=== PATIENT | female | born 1965 | race Caucasian/White ===

== ENCOUNTER 2017-02-08 22:12 | Emergency (ER) | payer MEDICAID ==
[~2017-02-08] VITALS: Ht 167.6 cm; Wt 74.2 kg
[~2017-02-08 22:12] MED LIST: HYDR-3307 PO; OMEP20TA62 PO; POLY17PO5 PO
[2017-02-08] MEDS ORDERED: HYDROmorphone 1 MG/ML, 1ML ONE (22:50)
[2017-02-08] MEDS ORDERED: ONDANSETRON 2MG/ML, 2ML ONE (22:51)
[2017-02-08] MEDS ORDERED: SODIUM CHLORIDE FLUSH 10ML SYR IVF ONE (23:00)
[2017-02-08] MEDS ORDERED: HYDROmorphone 1 MG/ML, 1ML IVPush PRN (23:00)
[2017-02-08] MEDS ORDERED: ONDANSETRON 2MG/ML, 2ML IVPush ONE (23:00)
[2017-02-08] MEDS ORDERED: SODIUM CHLORIDE 0.9% 1,000ML IVBOLUS ONE (23:00)
[2017-02-08] MEDS ORDERED: METHYLNALTREXONE 12 MG/0.6 ML SQ ONE (23:30)
[2017-02-09 00:01] VITALS: BP 95/60
== END 2017-02-09 00:04 | disposition home or self-care (01) ==
LOC: ED 22:44
DX: K59.00 Constipation, unspecified (principal); F11.10 Opioid abuse, uncomplicated
CPT/HCPCS: 74022; 96361; 96372; 96374; 96375; 99284; J1170; J2405; J7030

== ENCOUNTER 2017-04-02 16:57 | Emergency (ER) | payer MEDICAID ==
[~2017-04-02] VITALS: Ht 170.2 cm; Wt 77.1 kg
[2017-04-02] MEDS ORDERED: DIPH,PERTUSS(ACELL),TET VAC/PF 0.5 ML IM-VACC ONE ×2 (17:30→18:50)
[2017-04-02 18:56] LABS: BASOPHILS # (AUTO) 0.04 x10^3/uL (0-0.1); BASOPHILS % (AUTO) 1 % (0-1); EOSINOPHILS # (AUTO) 0.09 x10^3/uL (0-0.4); EOSINOPHILS % (AUTO) 2 % (1-7); LYMPHOCYTES # (AUTO) 0.77 x10^3/uL (1-3.4); LYMPHOCYTES % (AUTO) 15 % (22-44); MD NO; MEAN CORPUSCULAR HEMOGLOBIN 31.4 pg (27.0-34.8); MEAN CORPUSCULAR HGB CONC 33.4 g/dL (32.4-35.8); MEAN PLATELET VOLUME 7.2 fL (7.4-10.4); MONOCYTES # (AUTO) 0.84 x10^3/uL (0.2-0.8); MONOCYTES % (AUTO) 16 % (2-9); NEUTROPHILS # (AUTO) 3.46 x10^3/uL (1.8-6.8); NEUTROPHILS % (AUTO) 66 % (42-75); PLATELET COUNT 370 x10^3/uL (130-400); RED BLOOD COUNT 4.13 x10^6/uL (3.82-5.3); RED CELL DISTRIBUTION WIDTH 14.2 % (9.6-15.2)
[2017-04-02 19:07] LABS: ALANINE AMINOTRANSFERASE 19 U/L (12-78); ALBUMIN 3.2 g/dL (3.4-5.0); ANION GAP 7 mmol/L (5-15); CHLORIDE 105 mmol/L (98-107); CREATININE 0.65 mg/dL (0.55-1.02)
[2017-04-02 19:10] LABS: ALKALINE PHOSPHATASE 63 U/L (45-117); BILIRUBIN,TOTAL 0.2 mg/dL (0.2-1.0); TOTAL PROTEIN 6.3 g/dL (6.4-8.2)
[2017-04-02 20:57] LABS: MICROSCOPIC AUTO
[2017-04-02 20:59] LABS: CULTURE INDICATED? YES
[2017-04-02 21:46] VITALS: BP 123/79
== END 2017-04-02 21:50 | disposition home or self-care (01) ==
LOC: ED 20:03
DX: S16.1XXA Strain of muscle, fascia and tendon at neck level, initial encounter (principal); S00.03XA Contusion of scalp, initial encounter; S80.01XA Contusion of right knee, initial encounter; G89.29 Other chronic pain; M54.9 Dorsalgia, unspecified; Y04.0XXA Assault by unarmed brawl or fight, initial encounter; Y04.1XXA Assault by human bite, initial encounter; Y93.89 Activity, other specified; Y92.89 Other specified places as the place of occurrence of the external cause; Y99.8 Other external cause status
CPT/HCPCS: 36415; 70450; 70486; 72110; 72125; 80053; 81001; 83690; 85025; 87086; 90471; 90715

== ENCOUNTER 2017-06-08 19:48 | Emergency (ER) | payer MEDICAID ==
[~2017-06-08] VITALS: Ht 170.2 cm; Wt 72.3 kg
[2017-06-08 19:49] VITALS: BP 101/68
[2017-06-08] MEDS ORDERED: DIAZEPAM 5 MG TABLET PO ONE (20:30)
[2017-06-08] MEDS ORDERED: KETOROLAC 30 MG/1 ML IM ONE (20:30)
[2017-06-08] MEDS ORDERED: KETOROLAC 30 MG/1 ML ONE (21:11)
[2017-06-08] MEDS ORDERED: DIAZEPAM 5 MG TABLET ONE (21:11)
== END 2017-06-08 21:31 | disposition home or self-care (01) ==
LOC: ED 21:25
DX: M62.838 Other muscle spasm (principal)
CPT/HCPCS: 73030; 96372; 99284; J1885

== ENCOUNTER 2017-08-31 23:19 | Emergency (ER) | payer SELFPAY ==
[~2017-08-31] VITALS: Ht 170.2 cm; Wt 75.7 kg
[2017-08-31 23:55] LABS: BASOPHILS # (AUTO) 0.09 x10^3/uL (0-0.1); BASOPHILS % (AUTO) 1 % (0-1); EOSINOPHILS # (AUTO) 0.12 x10^3/uL (0-0.4); EOSINOPHILS % (AUTO) 1 % (1-7); LYMPHOCYTES # (AUTO) 1.48 x10^3/uL (1-3.4); LYMPHOCYTES % (AUTO) 15 % (22-44); MD NO; MEAN CORPUSCULAR HEMOGLOBIN 31.3 pg (27.0-34.8); MEAN CORPUSCULAR HGB CONC 33.5 g/dL (32.4-35.8); MEAN CORPUSCULAR VOLUME 93.3 fL (80-100); MEAN PLATELET VOLUME 7.1 fL (7.4-10.4); MONOCYTES # (AUTO) 0.87 x10^3/uL (0.2-0.8); MONOCYTES % (AUTO) 9 % (2-9); NEUTROPHILS % (AUTO) 75 % (42-75); PLATELET COUNT 424 x10^3/uL (130-400); RED BLOOD COUNT 4.16 x10^6/uL (3.82-5.3); RED CELL DISTRIBUTION WIDTH 14.4 % (9.6-15.2)
[2017-09-01 00:03] LABS: ANION GAP 4 mmol/L (5-15); CALCIUM 8.2 mg/dL (8.5-10.1); CHLORIDE 107 mmol/L (98-107); CREATININE 0.66 mg/dL (0.55-1.02)
[2017-09-01 01:24] VITALS: BP 139/84
== END 2017-09-01 01:24 | disposition home or self-care (01) ==
LOC: ED 23:59
DX: M19.90 Unspecified osteoarthritis, unspecified site (principal); F17.210 Nicotine dependence, cigarettes, uncomplicated
CPT/HCPCS: 36415; 80048; 82040; 84550; 85025; 99285

== ENCOUNTER 2018-01-26 13:46 | Emergency (ER) | payer MEDICAID ==
[~2018-01-26] VITALS: Ht 167.6 cm; Wt 79.0 kg
[2018-01-26 13:49] VITALS: BP 126/75
[2018-01-26] MEDS ORDERED: KETOROLAC 30 MG/1 ML IM ONE (14:00)
[2018-01-26] MEDS ORDERED: KETOROLAC 30 MG/1 ML ONE (14:04)
[2018-01-26 14:19] LABS: BASOPHILS # (AUTO) 0.03 x10^3/uL (0-0.1); BASOPHILS % (AUTO) 0 % (0-1); EOSINOPHILS # (AUTO) 0.11 x10^3/uL (0-0.4); EOSINOPHILS % (AUTO) 1 % (1-7); HCT (SEDRATE) 39.7 % (34.6-47.8); LYMPHOCYTES # (AUTO) 1.49 x10^3/uL (1-3.4); LYMPHOCYTES % (AUTO) 15 % (22-44); MD NO; MEAN CORPUSCULAR HGB CONC 33.4 g/dL (32.4-35.8); MEAN CORPUSCULAR VOLUME 95.9 fL (80-100); MEAN PLATELET VOLUME 7.4 fL (7.4-10.4); MONOCYTES # (AUTO) 0.62 x10^3/uL (0.2-0.8); MONOCYTES % (AUTO) 6 % (2-9); NEUTROPHILS % (AUTO) 78 % (42-75); PLATELET COUNT 390 x10^3/uL (130-400); RED BLOOD COUNT 4.14 x10^6/uL (3.82-5.3); RED CELL DISTRIBUTION WIDTH 14.4 % (9.6-15.2)
== END 2018-01-26 15:42 | disposition home or self-care (01) ==
LOC: ED 15:34
DX: S96.911A Strain of unspecified muscle and tendon at ankle and foot level, right foot, initial encounter (principal); M72.2 Plantar fascial fibromatosis; X58.XXXA Exposure to other specified factors, initial encounter; Y93.89 Activity, other specified; Y92.89 Other specified places as the place of occurrence of the external cause; Y99.8 Other external cause status
CPT/HCPCS: 36415; 73630; 84550; 85025; 85651; 96372; 99285; J1885

== ENCOUNTER 2018-07-11 09:39 | Emergency (ER) | payer MEDICAID ==
[~2018-07-11] VITALS: Ht 167.6 cm; Wt 78.9 kg
[2018-07-11 09:54] VITALS: BP 130/82
--- NOTE | 2018-07-11 10:14 | NUR ---
PT REFUSED TORADOL INJECTION. PA AWARE
[2018-07-11] MEDS ORDERED: KETOROLAC 30 MG/1 ML IM ONE (10:30)
== END 2018-07-11 11:02 | disposition home or self-care (01) ==
LOC: ED 10:24
DX: M72.2 Plantar fascial fibromatosis (principal); F17.200 Nicotine dependence, unspecified, uncomplicated
CPT/HCPCS: 99283

== ENCOUNTER → 2019-01-14 | Outpatient (CLI) | payer MEDICAID ==
[~2019-01-14] MED LIST changes: +DOCU-131 PO; +GABA-826 PO; -HYDR-3307 PO; +HYDR-36 PO; +TIZA4CAP PO; +TRAZ-137 PO
== END | disposition home or self-care (01) ==
LOC: RAD 14:23
PROVIDERS: ATTEND Neurological Surgery
DX: Z09 Encounter for follow-up examination after completed treatment for conditions other than malignant neoplasm (principal); R60.0 Localized edema; Z98.890 Other specified postprocedural states
CPT/HCPCS: 72040

== ENCOUNTER → 2019-01-19 | Outpatient (CLI) | payer MEDICAID ==
[2019-01-19 13:58] LABS: BASOPHILS # (AUTO) 0.08 x10^3/uL (0-0.1); BASOPHILS % (AUTO) 1 % (0-1); EOSINOPHILS # (AUTO) 0.09 x10^3/uL (0-0.4); EOSINOPHILS % (AUTO) 1 % (1-7); LYMPHOCYTES # (AUTO) 2.04 x10^3/uL (1-3.4); LYMPHOCYTES % (AUTO) 28 % (22-44); MD NO; MEAN CORPUSCULAR HEMOGLOBIN 30.8 pg (27.0-34.8); MEAN CORPUSCULAR HGB CONC 32.8 g/dL (32.4-35.8); MEAN CORPUSCULAR VOLUME 93.7 fL (80-100); MEAN PLATELET VOLUME 7.2 fL (7.4-10.4); MONOCYTES # (AUTO) 0.68 x10^3/uL (0.2-0.8); MONOCYTES % (AUTO) 9 % (2-9); NEUTROPHILS # (AUTO) 4.48 x10^3/uL (1.8-6.8); NEUTROPHILS % (AUTO) 61 % (42-75); PLATELET COUNT 369 x10^3/uL (130-400); RED BLOOD COUNT 4.44 x10^6/uL (3.82-5.3); RED CELL DISTRIBUTION WIDTH 13.9 % (9.6-15.2)
[2019-01-19 14:09] LABS: ANION GAP 2 mmol/L (5-15); CALCIUM 8.5 mg/dL (8.5-10.1); CHLORIDE 104 mmol/L (98-107)
[2019-01-19 14:10] LABS: CREATININE 0.59 mg/dL (0.55-1.02)
== END | disposition home or self-care (01) ==
LOC: STAR 12:42
PROVIDERS: ATTEND Orthopaedic Surgery
DX: Z01.818 Encounter for other preprocedural examination (principal); M17.11 Unilateral primary osteoarthritis, right knee
CPT/HCPCS: 36415; 80048; 85025; 87081

== ENCOUNTER 2019-01-27 06:51 | Observation (INO) | payer MEDICAID ==
[~2019-01-27] VITALS: Ht 170.2 cm; Wt 86.7 kg
[~2019-01-27 06:51] MED LIST changes: +DEXAMETHASONE 4 MG/ML, 1ML IVPush ONE
[2019-01-27] MEDS ORDERED: ROPIvacaine/PF 0.2%, 20 ML ONE (06:53)
[2019-01-27] MEDS ORDERED: TRANEXAMIC ACID 100 MG/ML, 10ML ONE (06:53)
[2019-01-27] MEDS ORDERED: VANCOMYCIN 1,000 MG ONE (06:53)
[2019-01-27] MEDS ORDERED: KETOROLAC 60 MG/2 ML ONE (06:53)
[2019-01-27] MEDS ORDERED: EPINEPHRINE 1 MG/ML, 1ML ONE (06:54)
[2019-01-27] MEDS ORDERED: ACETAMINOPHEN 500 MG TABLET PO ONE (07:30)
[2019-01-27] MEDS ORDERED: PREGABALIN 150 MG CAPSULE PO ONE (07:30)
[2019-01-27] MEDS ORDERED: SCOPOLAMINE PATCH, 1.5MG PATCH.TD72 TD ONE (07:30)
[2019-01-27 07:38] VITALS: BP 116/71
[2019-01-27] MEDS ORDERED: MIDAZOLAM 1 MG/ML, 2ML ONE (07:46)
[2019-01-27] MEDS ORDERED: FENTANYL PF 250 MCG/5ML ONE (07:46)
[2019-01-27] MEDS ORDERED: LACTATED RINGERS 1,000 ML IV SCH (07:54)
[2019-01-27 08:00] LABS: HCG UR SG 1.035 (1.003-1.030)
[2019-01-27] MEDS ORDERED: FLU VACC QS2019-20 36MOS UP/PF 0.5 ML IM-VACC ONE (08:00)
[2019-01-27] MEDS ORDERED: DEXAMETHASONE 4 MG/ML, 1ML ONE (09:15)
[2019-01-27] MEDS ORDERED: CEFAZOLIN 1,000 MG ONE (09:15)
[2019-01-27] MEDS ORDERED: ROCURONIUM 10 MG/ML,10ML ONE (09:15)
[2019-01-27] MEDS ORDERED: PROPOFOL 10 MG/ML, 20ML ONE (09:15)
[2019-01-27] MEDS ORDERED: ONDANSETRON 2MG/ML, 2ML ONE (09:15)
[2019-01-27] MEDS ORDERED: SUCCINYLCHOLINE 20 MG/ML, 10ML ONE (09:15)
[2019-01-27] MEDS ORDERED: ALBUTEROL SULFATE 2.5 MG/3 ML NPPB PRN (10:00)
[2019-01-27] MEDS ORDERED: LABETALOL 5MG/ML, 20ML IV PRN (10:00)
[2019-01-27] MEDS ORDERED: PROMETHAZINE 25 MG/ML, 1ML IV PRN (10:00)
[2019-01-27] MEDS ORDERED: MEPERIDINE/PF 25MG/0.5ML IVPush PRN (10:00)
[2019-01-27] MEDS ORDERED: hydrALAzine 20 MG/ML, 1ML IV PRN (10:00)
[2019-01-27] MEDS ORDERED: OXYcodone 5 MG/5 ML ORAL.SOL UDC PO PRN (10:00)
[2019-01-27] MEDS ORDERED: KETOROLAC 30 MG/1 ML IV PRN (10:00)
[2019-01-27] MEDS ORDERED: METOCLOPRAMIDE 5 MG/ML, 2ML IV PRN (10:00)
[2019-01-27] MEDS ORDERED: ONDANSETRON 2MG/ML, 2ML IVPush PRN (10:00)
[2019-01-27] MEDS ORDERED: OXYcodone 5 MG/5 ML ORAL.SOL UDC ONE (10:45)
[2019-01-27] MEDS ORDERED: FENTANYL PF 100 MCG/2ML ONE (10:45)
[2019-01-27] MEDS: FENTANYL PF 100 MCG/2ML IV PRN ×2 (10:46→11:00)
[2019-01-27] MEDS ORDERED: LORazepam 2 MG/ML, 1ML ONE (10:48)
[2019-01-27] MEDS ORDERED: ALUMINUM/MAG/SIMETHICONE 30 ML UDC PO PRN (11:00)
[2019-01-27] MEDS ORDERED: PROMETHAZINE 12.5 MG SUPP PR PRN (11:00)
[2019-01-27] MEDS ORDERED: HYDROmorphone 2 MG/ML, 1ML IVPush PRN (11:00)
[2019-01-27] MEDS ORDERED: LORazepam 2 MG/ML, 1ML IVPush PRN (11:00)
[2019-01-27] MEDS ORDERED: SENNA/DOCUSATE TABLET PO PRN (11:00)
[2019-01-27] MEDS ORDERED: ONDANSETRON 2MG/ML, 2ML IV PRN (11:00)
[2019-01-27] MEDS ORDERED: SCOPOLAMINE PATCH, 1.5MG PATCH.TD72 TD SCH (11:00)
[2019-01-27] MEDS ORDERED: ZOLPIDEM 5MG TABLET PO PRN (11:00)
[2019-01-27] MEDS ORDERED: MAGNESIUM HYDROXIDE 8%, 30ML UDC PO PRN (11:00)
[2019-01-27] MEDS ORDERED: PROMETHAZINE 25 MG/ML, 1ML IM PRN (11:00)
[2019-01-27] MEDS ORDERED: DIPHENHYDRAMINE 50 MG CAPSULE PO PRN (11:00)
[2019-01-27] MEDS ORDERED: PSYLLIUM PACKET PO PRN (11:00)
[2019-01-27] MEDS ORDERED: TIZANIDINE 4MG TABLET PO PRN (11:00)
[2019-01-27] MEDS ORDERED: BISACODYL 10 MG SUPP PR PRN (11:00)
[2019-01-27] MEDS ORDERED: ONDANSETRON 4 MG TABLET PO PRN (11:00)
[2019-01-27] MEDS ORDERED: DIAZEPAM 5 MG TABLET PO PRN (11:00)
[2019-01-27] MEDS ORDERED: HYDROmorphone 2 MG/ML, 1ML ONE (11:07)
[2019-01-27] MEDS ORDERED: TRANEXAMIC ACID 1,000 MG in SODIUM CHLORIDE 0.9% 100 ML IVPB ONE (11:10)
[2019-01-27] MEDS: HYDROmorphone 1 MG/ML, 1ML INJ IV PRN ×3 (11:10→11:33)
[2019-01-27 12:30] VITALS: BP 108/68
[2019-01-27] MEDS: CALCIUM/VITAMIN D3 250-125 TABLET PO SCH ×2 (13:58→17:37)
[2019-01-27] MEDS: ACETAMINOPHEN 500 MG TABLET PO SCH ×2 (13:58→19:33)
[2019-01-27] MEDS: KETOROLAC 30 MG/1 ML IV SCH ×2 (13:58→19:33)
[2019-01-27] MEDS: HYDROcodone/APAP 10/325 MG TABLET PO PRN ×2 (15:53→21:09)
[2019-01-27] MEDS: FERROUS SULFATE 325 MG TABLET PO SCH (17:37)
[2019-01-27] MEDS: CEFAZOLIN PMX 2GM/50ML 50 ML IVPB SCH (17:37)
[2019-01-27] MEDS: ASPIRIN 81 MG TABLET EC PO SCH ×2 (17:43→21:09)
[2019-01-27] MEDS: D5%-0.45% NACL 1,000 ML IV SCH (19:33)
[2019-01-27 19:37] VITALS: BP 103/66
[2019-01-27] MEDS ORDERED: TRAZODONE 100MG TABLET PO SCH (21:00)
[2019-01-27] MEDS: DOCUSATE 100 MG CAPSULE PO SCH (21:09)
[2019-01-28] MEDS: CEFAZOLIN PMX 2GM/50ML 50 ML IVPB SCH (00:12)
[2019-01-28 00:29] VITALS: BP 97/62
[2019-01-28] MEDS: KETOROLAC 30 MG/1 ML IV SCH ×3 (01:47→14:22)
[2019-01-28] MEDS: ACETAMINOPHEN 500 MG TABLET PO SCH ×3 (01:48→14:22)
[2019-01-28] MEDS: HYDROcodone/APAP 10/325 MG TABLET PO PRN ×3 (04:24→12:52)
[2019-01-28 04:32] VITALS: BP 97/60
[2019-01-28] MEDS ORDERED: DEXAMETHASONE 4 MG/ML, 1ML IVPush ONE (06:00)
[2019-01-28 07:21] VITALS: BP 101/60
[2019-01-28] MEDS: CALCIUM/VITAMIN D3 250-125 TABLET PO SCH ×2 (08:32→12:51)
[2019-01-28] MEDS: ASPIRIN 81 MG TABLET EC PO SCH (08:32)
[2019-01-28] MEDS: DOCUSATE 100 MG CAPSULE PO SCH (08:32)
[2019-01-28] MEDS: FERROUS SULFATE 325 MG TABLET PO SCH (08:32)
[2019-01-28] MEDS: D5%-0.45% NACL 1,000 ML IV SCH (08:43)
[2019-01-28] MEDS ORDERED: ASCORBIC ACID 500 MG TABLET PO SCH (09:00)
[2019-01-28] MEDS ORDERED: OMEPRAZOLE 20 MG CAPSULE.DR PO SCH (09:00)
[2019-01-28] MEDS ORDERED: MULTIVITAMINS/MINERALS TABLET PO SCH (09:00)
[2019-01-28 15:00] VITALS: BP 124/68
== END 2019-01-28 16:00 | disposition home or self-care (01) ==
LOC: OUT 06:51 → 4NE 12:21 → OUT 20:29 → DCLOUNGE 01-28 15:49
PROVIDERS: ADMIT Orthopaedic Surgery; ATTEND Orthopaedic Surgery
DX: M17.11 Unilateral primary osteoarthritis, right knee (principal); D64.9 Anemia, unspecified; M06.9 Rheumatoid arthritis, unspecified; Z23 Encounter for immunization; Z88.5 Allergy status to narcotic agent; Z88.2 Allergy status to sulfonamides
CPT/HCPCS: 01402; 27447; 36415; 73560; 81025; 85014; 85018; 90471; 90686; 96365; 96366; 96375; 96376; 97162; C1713; C1776; G0378; J0171; J0330; J0690; J1100; J1170; J1885; J2060; J2250; J2405; J2704; J2795; J3010; J7120; J3370

== ENCOUNTER → 2019-04-15 | Outpatient (CLI) | payer MEDICAID ==
[~2019-04-15] MED LIST changes: -DEXAMETHASONE 4 MG/ML, 1ML IVPush ONE
== END | disposition home or self-care (01) ==
LOC: RAD 16:04
PROVIDERS: ATTEND Neurological Surgery
DX: M40.40 Postural lordosis, site unspecified (principal); M43.22 Fusion of spine, cervical region; M47.813 Spondylosis without myelopathy or radiculopathy, cervicothoracic region
CPT/HCPCS: 72040

== ENCOUNTER 2020-06-19 19:34 | Emergency (ER) | payer MEDICAID ==
[~2020-06-19] VITALS: Ht 167.6 cm; Wt 77.5 kg
[~2020-06-19 19:34] MED LIST changes: +HYDR-3248 PO; -HYDR-36 PO; -TRAZ-137 PO; +TRAZ-175 PO
[2020-06-19 19:44] VITALS: BP 118/69
[2020-06-19] MEDS ORDERED: METHOCARBAMOL 750 MG TABLET PO ONE (20:30)
[2020-06-19] MEDS ORDERED: OXYcodone/APAP 5/325MG TABLET PO ONE (20:30)
[2020-06-19] MEDS ORDERED: OXYcodone/APAP 5/325MG TABLET ONE (20:36)
[2020-06-19] MEDS ORDERED: METHOCARBAMOL 750 MG TABLET ONE (20:36)
--- NOTE | 2020-06-19 21:05 | NUR ---
Patient to CT.
== END 2020-06-19 22:39 | disposition home or self-care (01) ==
LOC: ED 20:48
DX: S16.1XXA Strain of muscle, fascia and tendon at neck level, initial encounter (principal); M79.671 Pain in right foot; V49.49XA Driver injured in collision with other motor vehicles in traffic accident, initial encounter; Y93.89 Activity, other specified; Y92.89 Other specified places as the place of occurrence of the external cause; Y99.8 Other external cause status
CPT/HCPCS: 72125; 99284